=== PATIENT | male | born 1975 | race African-American/Black ===

== ENCOUNTER → 2020-05-05 | Emergency (ER) | payer MEDICAID, OTHER ==
[~2020-05-05] VITALS: Ht 177.8 cm; Wt 72.1 kg
[~2020-05-05] MED LIST: metroNIDAZOLE 500MG/100ML 100 ML IV ONE
[2020-05-05 10:39] LABS: Urine WBC None Seen /hpf (0 - 3)
[2020-05-05 10:46] LABS: Basophils # (auto) 0 10 ^3/uL (0-0.2); Basophils % (auto) 0.6 % (0.0-2.0); Eosinophils # (auto) 0.1 10 ^3/uL (0-0.8); Eosinophils % (auto) 2.2 % (0.0-7.0); Hematocrit 46.7 % (41.0-53.0); Hemoglobin 15.2 g/dL (13.5-17.5); Lymphocytes # (auto) 1.5 10 ^3/uL (0.4-5.4); Lymphocytes % (auto) 44.4 % (10.0-50.0); Mean Corpuscular Hgb Conc. 32.5 g/dL (32.0-36.0); Mean Corpuscular Volume 92.6 fL (80.0-100.0); Monocytes # (auto) 0.4 10 ^3/uL (0-1.3); Monocytes % (auto) 12.5 % (0.0-12.0); Neutrophils # (auto) 1.3 10 ^3/uL (1.6-8.6); Neutrophils % (auto) 40.3 % (37.0-80.0); Nucleated Red Blood Cells % 0.3 %; Red Blood Cells 5.04 10^6/uL (4.5-5.90); Red Cell Distribution Width 15.3 % (11.8-14.3); White Blood Cell 3.3 10^3/uL (4.4-10.8)
[2020-05-05 10:48] LABS: Urine Bacteria NONE SEEN /hpf (None Seen); Urine Blood Negative /uL (Negative); Urine Mucus FEW (None Seen); Urine Specific Gravity 1.032 (1.001-1.035)
[2020-05-05 11:05] LABS: Albumin 3.8 g/dL (3.4-5.0); Calcium 8.7 mg/dL (8.5-10.1); Potassium 3.7 mmol/L (3.5-5.1)
[2020-05-05 11:09] LABS: BUN/Creatinine Ratio 6.3; Bilirubin, Total 0.6 mg/dL (0.2-1.0); Total Protein 7.5 g/dL (6.4-8.2)
[2020-05-05 12:19] LABS: Platelet Count (auto) 209 10^3/uL (140-450)
[2020-05-05 14:12] LABS: Magnesium 2.2 mg/dL (1.6-2.6)
[2020-05-05 19:05] VITALS: BP 162/103
== END | disposition left against medical advice (07) ==
LOC: ER 10:04 → UNDOADMIN 10:05 → OVERFLOW 10:05 → UNDODISIN 19:50
DX: R10.30 Lower abdominal pain, unspecified (principal); K62.89 Other specified diseases of anus and rectum; Z53.29 Procedure and treatment not carried out because of patient's decision for other reasons
CPT/HCPCS: 36415; 74176; 80053; 81001; 83690; 83735; 85025; 96365; 99284; J3490; J7050; G0378

== ENCOUNTER 2021-08-24 08:29 | Emergency (ER) | payer MEDICAID ==
[~2021-08-24] VITALS: Ht 177.8 cm; Wt 75.7 kg
[2021-08-24 08:59] VITALS: BP 148/92
== END 2021-08-24 10:10 | disposition home or self-care (01) ==
LOC: ER 08:29
DX: S39.012A Strain of muscle, fascia and tendon of lower back, initial encounter (principal); X50.1XXA Overexertion from prolonged static or awkward postures, initial encounter; Y93.89 Activity, other specified; Y92.89 Other specified places as the place of occurrence of the external cause; Y99.8 Other external cause status
CPT/HCPCS: 71046; 93005